=== PATIENT | female | born 1985 | race Caucasian/White ===

== ENCOUNTER 2017-01-14 17:25 | Emergency (ER) | payer BC, OTHER ==
[~2017-01-14] VITALS: Ht 160 cm; Wt 90.2 kg
[~2017-01-14 17:25] MED LIST: ALBU1AER9 INH; ALBUAER2 INH; LORA10TA5 PO
[2017-01-14 17:27] VITALS: TEMP 36.6; Ht 160 cm; Wt 90.2 kg
[2017-01-14] MEDS ORDERED: CYCLOBENZAPRINE HCL 10 MG TAB PO STA (17:47)
[2017-01-14] MEDS ORDERED: KETOROLAC TROMETHAMINE 60 MG/2 ML VIAL IM STA (17:47)
[2017-01-14] MEDS ORDERED: IBUP-103 PO (17:49)
[2017-01-14] MEDS ORDERED: PRVHFAIN INH (17:49)
--- NOTE | 2017-01-14 18:22 | DIAGNOSTIC IMAGING REPORT ---
CERVICAL SPINE 5 VIEWS CLINICAL HISTORY: Right-sided neck pain. FINDINGS: AP, lateral, bilateral oblique, and odontoid views of the cervical spine are obtained. No prior studies are available for comparison at the time of dictation. The skeletal structures are well mineralized. There is no radiographic evidence of fracture or subluxation. The odontoid process and lateral masses appear intact on the open mouth view. The spinolaminar line is preserved. Vertebral body height and alignment are maintained. There is straightening of cervical lordosis. The spinous processes appear intact. The intervertebral disc spaces are normal. There is no evidence of neuroforaminal stenosis on the oblique views. The prevertebral soft tissues are within normal limits. Visualized apical lung parenchyma appears clear. IMPRESSION: There is no radiographic evidence of fracture or subluxation involving the cervical spine. Electronically signed by: Markus Vargas M.D. 01/14/2017 6:20 PM Dictated Date/Time: 01/14/2017 6:20 PM
[2017-01-14] MEDS ORDERED: CYCL10TA6 PO (18:50)
[2017-01-14 18:55] VITALS: BP 141/93; PULSE 66; O2SAT 96
--- NOTE | 2017-01-14 21:55 | EMERGENCY ROOM VISIT NOTE ---
History Report prepared by Ame: Ina Peterson Under the Supervision of: Dr. Vin Rose M.D. First contact with patient: 17:34 Chief Complaint: NECK PAIN Stated Complaint: PULLED MUSCLE IN BACK/NECK PAIN History of Present Illness The patient is a 31 year old female who presents to the Emergency Room with complaints of worsening right-sided neck pain that started yesterday. The pain is worse when she turns her head to the right side. The patient states that she thinks she pulled a muscle while scraping ice off of her car yesterday. She was trying to rub her neck to relieve the pain before work, but it offered her no relief. She took two ibuprofen tablets around 1300 today and those have not offered her any relief either. The pain does not radiate down her arm. She can feel and move her fingers without difficulty. She denies any numbness. She denies chest pain and shortness of breath. The patient also denies any recent falls and any chance of . Source of History: patient Onset: yesterday Position: neck (right-sided) Quality: other (right-sided neck pain) Timing: worsening Modifying Factors (Worsening): movement (turning head to the right) Associated Symptoms: No SOB, No chest pain, No numbness, No weakness Note: no arm pain Review of Systems See HPI for pertinent positives & negatives. A total of 10 systems reviewed and were otherwise negative. Past Medical & Surgical Medical Problems: (1) Asthma Family History Diabetes mellitus FHx: gallbladder disease Hypertension Social History Smoking Status: Never Smoker Alcohol Use: none Drug Use: none Occupation Status: employed Current/Historical Medications Scheduled Loratadine (Claritin), 10 MG PO DAILY Scheduled PRN Albuterol (Ventolin Hfa), 1.2 PUFFS INH QID PRN for SOB/Wheezing Cyclobenzaprine Hcl (Flexeril), 1 TAB PO Q8 PRN for Pain Ibuprofen Tab (Advil), 200-600 MG PO Q4H PRN for Pain or Fever Allergies Coded Allergies: Egg (Verified Allergy, Severe, "VIOLENT VOMITING", 01/14/17) Animal Dander (Verified Allergy, Intermediate, EYES SWELL, ITCHY EYES, 10/21) Molds and Smuts (Verified Allergy, Intermediate, ITCHY EYES, EYES SWELL, ) Physical Exam Vital Signs Date Time Temp Pulse Resp B/P Pulse Ox O2 Delivery O2 Flow Rate FiO2 01/14/17 18:55 66 18 141/93 96 01/14/17 18:50 66 18 141/93 96 Room Air 01/14/17 17:27 36.6 80 18 147/99 99 Room Air Physical Exam Constitutional: Vital signs reviewed. Eyes: Pupils are equal round reactive to light. Conjunctiva are noninjected. ENT: Pharynx is clear without erythema or exudate. Mucous membranes are moist. Neck tender along right trapezius muscle with difficulty turning toward right , no swelling or erythema, no midline tenderness to the cervical spine. Respiratory: Clear to auscultation bilaterally. Breath sounds are equal bilaterally. Cardiovascular: Regular rate and rhythm. No rubs or gallops. Musculoskeletal: No peripheral edema. Integumentary: No cyanosis. Neurological: The patient is awake and alert. No focal deficits. Motor and sensations intact in all major nerve distributions in both upper extremities. Psychiatric: Normal affect. Medical Decision & Procedures ER Provider Diagnostic Interpretation: X-ray results as stated below per interpretation by me and the radiologist: CERVICAL SPINE 5 VIEWS IMPRESSION: There is no radiographic evidence of fracture or subluxation involving the cervical spine. Electronically signed by: Markus Vargas M.D. 01/14/2017 6:20 PM Dictated Date/Time: 01/14/2017 6:20 PM Medications Administered Medications (Trade) Dose Ordered Sig/[place] Route Start Time Stop Time Status Last Admin Dose Admin Ketorolac Tromethamine (Toradol Inj) 60 mg NOW STAT IM 01/14/17 17:47 01/14/17 17:48 DC 01/14/17 17:55 60 MG Cyclobenzaprine HCl (Flexeril Tab) 10 mg NOW STAT PO 01/14/17 17:47 01/14/17 17:48 DC 01/14/17 17:55 10 MG ED Course 1743: The patient was evaluated in room C1. A complete history and physical exam was performed. 1746: Ordered Flexeril Tab 10 mg PO, Toradol Inj 60 mg IM 1848: Upon reevaluation, the patient appeared to have improvement of her symptoms. Her neck is feeling much better. I discussed tonight's findings with her. She verbalized agreement of the treatment plan. She was discharged home. Medical Decision This is a 31-year-old female who presents with right-sided neck pain. Differential diagnosis includes strain, torticollis, cervical disc disease, radiculopathy. I did perform a limited focused review of portions of the patient's old chart on the electronic medical record. The patient has had no recent pertinent visits to this hospital. I did evaluate the patient as noted above. Patient is presenting with right- sided neck pain. Her symptoms seem most consistent with either strain or radicular disease. She is neurologically intact. I did treat the patient with Toradol IM and Flexeril 10 mg orally. I did order and personally review the patient's cervical spine x-rays as described above. I did reassess the patient. She is feeling better. I did discuss her x-ray results with her. I did recommend close follow up with her doctor. She was discharged with a prescription for Flexeril and will continue anti-inflammatories at home. Impression Primary Impression: Neck pain Scribe Attestation The scribe's documentation has been prepared under my direct and personally reviewed by me in its entirety. I confirm that the note above accurately reflects all work, treatment, procedures, and medical decision making performed by me. Departure Information Dispostion Home / Self-Care Prescriptions Cyclobenzaprine Hcl (FLEXERIL) 10 Mg Tab 1 TAB PO Q8 Y for Pain, #25 TAB Prov: Vin Rose M.D. 01/14/17 Referrals No Doctor, Assigned (PCP) Forms HOME CARE DOCUMENTATION FORM, IMPORTANT VISIT INFORMATION, WORK / SCHOOL INSTRUCTIONS Patient Instructions ED Neck Pain No Trauma, My [facility] Additional Instructions You have been examined and treated today on an emergency basis only. This is not a substitute for, or an effort to provide, complete comprehensive medical care. It is impossible to recognize and treat all injuries or illnesses in a single emergency department visit. It is therefore important that you follow up closely with your physician. Call as soon as possible for an appointment. Return for worsening symptoms or if you develop fever, vomiting, loss of control of your bowel or bladder, numbness or weakness to your extremities, numbness to your private area, difficulty urinating, or any other concerning symptoms.
== END 2017-01-14 18:55 | disposition home or self-care (01) ==
LOC: C.EDB 17:28 → C.EDC 18:55
DX: M54.2 Cervicalgia (principal); J45.909 Unspecified asthma, uncomplicated; Z83.3 Family history of diabetes mellitus; Z82.49 Family history of ischemic heart disease and other diseases of the circulatory system